=== PATIENT | female | born 1950 | race Two or more races ===

== ENCOUNTER 2019-09-06 13:47 | Inpatient (IN) | payer MEDICARE ==
[~2019-09-06] VITALS: Ht 162.6 cm; Wt 42.6 kg
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
[2019-09-06] MEDS ORDERED: BLOOD SUGAR DIAGNOSTIC 1 EACH STRIP IN ONE (23:00)
[2019-09-06] MEDS ORDERED: MAGNESIUM HYDROXIDE 30 ML UDC PO PRN (23:00)
[2019-09-06] MEDS ORDERED: ACETAMINOPHEN 325 MG TABLET PO PRN (23:00)
[2019-09-06] MEDS ORDERED: MAG HYDROX/AL HYDROX/SIMETH 30 ML UDC PO PRN (23:00)
[2019-09-07] MEDS ORDERED: ALPR2TAB7 PO (00:11)
[2019-09-07] MEDS ORDERED: HYDROXYZINE PO (00:11)
[2019-09-07] MEDS ORDERED: zolpidem (00:11)
[2019-09-07] MEDS ORDERED: BETH50TA2 PO (00:11)
[2019-09-07] MEDS ORDERED: buprenorphine PO (00:11)
[2019-09-07] MEDS ORDERED: TRAZ-257 PO (00:11)
[2019-09-07] MEDS ORDERED: BETHANECHOL CHLORIDE 50 MG TABLET PO SCH (00:30)
[2019-09-07 00:48] VITALS: BP 152/117
[2019-09-07] MEDS: LORAZEPAM 0.5 MG TABLET PO PRN ×2 (00:52→08:12)
--- NOTE | 2019-09-07 00:54 | NUR ---
GPS RN NOTES: ANXIOUS PT C/O OF FEELING ANXIOUS. OFFERED ATIVAN 0.5MG PO PRN ORDERED. PT AGREED AND TOLERATED MEDICATION WELL. CONTINUE TO MONITOR
[2019-09-07] MEDS ORDERED: BETHANECHOL CHLORIDE 50 MG TABLET PO PRN (01:00)
[2019-09-07] MEDS ORDERED: BETHANECHOL CHLORIDE (25 MG) 25 MG TABLET ONE (01:26)
--- NOTE | 2019-09-07 01:39 | NUR ---
GPS RN NOTES: PT C/O OF UNABLE TO URINATE. NO PAIN AT THIS TIME. PT STATED SHE HAS THE URGE TO USE THE RESTROOM BUT IS UNABLE TO URINATE. PT REQUESTED BETHANECHOL CHLORIDE. ADMINISTERED BETHANECHOL CHLORIDE 50MG 2 TABLETS. PT TOLERATED MEDICATION WELL. CONTINUE TO MONITOR.
--- NOTE | 2019-09-07 02:00 | NUR ---
GPS RN NOTES: PT STATED SHE WAS ABLE TO URINATE WELL. NO PAIN IR URGE AT THIS TIME. CONTINUE TO MONITOR.
[2019-09-07] MEDS: TEMAZEPAM 7.5 MG CAPSULE PO PRN (02:26)
--- NOTE | 2019-09-07 02:27 | NUR ---
GPS RN NOTES: INSOMNIA PT C/O UNABLE TO SLEEP. PT REQUESTED SLEEPING PILL. OFFERED RESTORIL 7.5 MG PO PRN ORDERED. PT AGREED AND TOLERATED MEDICATION WELL CONTINUE TO MONITOR.
[2019-09-07 07:14] LABS: CHOLESTEROL 284 mg/dL (<200); HDL CHOLESTEROL 102 mg/dL (40-60); LDL 172 mg/dL (0-99); TRIGLYCERIDES 82 mg/dL (30-150)
[2019-09-07 07:20] LABS: ALBUMIN 4.2 g/dL (3.4-5.0); BILIRUBIN,TOTAL 0.4 mg/dL (0.2-1.0); CALCIUM, SERUM 9.8 mg/dL (8.5-10.1); CREATININE 0.8 mg/dL (0.6-1.3); POTASSIUM 3.7 mmol/L (3.5-5.1); TOTAL PROTEIN, SERUM 7.7 g/dL (6.4-8.2)
[2019-09-07 08:00] VITALS: BP 112/50
--- NOTE | 2019-09-07 08:13 | NUR ---
RN NOTE- PT W AGITATION ELEVATED BP. MED RECON NOT DONE YET NOTIFIED. ATIVAN 0.5 MG GIVEN. MONITORING PT
--- NOTE | 2019-09-07 08:32 | NUR ---
RN NOTE- B/P 175/126 DR ORDONEZ NOTIFIED. ORDERS FORTHCOMING
[2019-09-07] MEDS: AMLODIPINE BESYLATE 5 MG TABLET PO SCH (08:49)
--- NOTE | 2019-09-07 09:00 | NUR ---
RN NOTE- PT ALERT CONFUSED DELUSIONAL PARANOID PERSECUTORY PO INTAKE FAIR, MED COMPLIANT ANXIOUS HIGH BP DENIES ALL
--- NOTE | 2019-09-07 09:40 | NUR ---
RN NOTE- DR ORDONEZ ORDERED NORVASC 5 MG FOR ELEVATED BP. GIVEN ONE HR AGO. RECHECK BP 208/132. DR RODRIGEZ NOTIFIED ORDERS RECEIVED
[2019-09-07] MEDS ORDERED: CLONIDINE HCL 0.1 MG TABLET PO ONE (10:00)
[2019-09-07] MEDS ORDERED: CLONIDINE HCL 0.1 MG TABLET PO PRN (10:00)
[2019-09-07] MEDS ORDERED: QUETIAPINE FUMARATE 25 MG TABLET PO PRN (11:00)
[2019-09-07] MEDS: ALPRAZOLAM 1 MG TABLET PO SCH ×3 (11:30→20:57)
[2019-09-07] MEDS: DIVALPROEX SODIUM 250 MG TABLET.DR PO SCH ×2 (12:45→16:43)
--- NOTE | 2019-09-07 15:08 | NUR ---
GROUP THERAPY: SW encouraged pt to attend group therapy in this present day, pt refused stating, "I don't want to leave my room." pt is not appropriate for individual counseling at this time as pt is manic and extremely anxious and unable to engage in redirection and conversation. Pts mood is also labile pt becomes hyperverbal then withdraws.
[2019-09-07 16:00] VITALS: BP 146/88
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
[2019-09-07 20:53] VITALS: BP 118/76
[2019-09-07] MEDS: QUETIAPINE FUMARATE 25 MG TABLET PO SCH (22:05)
--- NOTE | 2019-09-07 23:06 | NUR ---
GPS RN NOTES: UPON DOING ROUNDS PT LAYING IN BED AWAKE. PT STATED SHE DOES NOT WANT TO BE BOTHERED. PT EASILY AGITATED WHEN DOING ROUNDS. PT CLAIMS IT DISTURBS HER AND WANTS TO BE LEFT ALONE. OFFERED RESTORIL PRN ORDERED BUT PT DID NOT RESPOND. WILL OFFER AGAIN WITHIN THE NIGHT. REMINDED PT ABOUT Q15 MIN ROUNDS PER UNIT PROTOCOL. CONTINUE TO MONITOR.
[2019-09-08] MEDS: TEMAZEPAM 7.5 MG CAPSULE PO PRN (01:44)
[2019-09-08 08:00] VITALS: BP 142/82
[2019-09-08] MEDS: DIVALPROEX SODIUM 250 MG TABLET.DR PO SCH ×3 (08:19→17:09)
[2019-09-08] MEDS: AMLODIPINE BESYLATE 5 MG TABLET PO SCH (08:19)
[2019-09-08] MEDS: ALPRAZOLAM 1 MG TABLET PO SCH ×4 (08:19→21:06)
--- NOTE | 2019-09-08 09:00 | NUR ---
RN NOTE-PT IN ROOM QUIET ANXIOUS. DENIES SI HI AH VH TREMULOUS AT TIMES VS STABLE PO INTAKE FAIR. PHONED AGAIN REGARDING SUBOXYL. REQUESTED HIM TO BRING INTO FACILITY FOR PT USE, SECOND MESSAGE LEFT. WILL CONTACT MD TO SEE ABOUT ALTERNATE RX PLAN
--- NOTE | 2019-09-08 09:43 | NUR ---
WOUND CARE CONSULT: PT PRESENTS WITH DRY SCRATCH FLYNN, ESPECIALLY TO LEFT ARM, PRESENT ON ADMISSION. NO DRAINAGE OR TENDERNESS NOTED. CURRENT RHINA SCORE IS 19. WILL SEE PRN.
--- NOTE | 2019-09-08 11:30 | NUR ---
Family Contact: JAKOB called the following three phone numbers for the pts , West ([phone]; [phone]; [phone]), and was unable to make contact. JAKOB left a message stating that she would like to speak to the pts regarding the pt and her care.
--- NOTE | 2019-09-08 12:13 | NUR ---
Initial Discharge Plan: Pt currently resides in her home located at [address] [place] [address]; ([phone]) with her , Seth ([phone]). Pt states that she would like to return to her house if her is gone. SW will work with the pt and the MD regarding appropriate discharge planning. SW will form a safe and proper discharge.
[2019-09-08] MEDS ORDERED: BUPR1FIL SL (12:39)
[2019-09-08] MEDS ORDERED: KEY,NONCONTROL,TO KEEP IN PYXI 1 EA MC ONE ×3 (14:50→22:04)
[2019-09-08] MEDS: SUBOXONE SL PRN (14:53)
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
[2019-09-08 16:00] VITALS: BP 122/57
--- NOTE | 2019-09-08 16:02 | NUR ---
Individual Counseling: This SW met with pt. at bedside to facilitate individual counseling regarding support systems. The patient presented sitting on her bed and appears unkempt, irritable and anxious. SW attempted to engage with patient, however, patient was fixated on getting her medication stating, "I am in extreme pain". Patient refused to meet with SW. Patient will be invited to attend future therapeutic milieu.
--- NOTE | 2019-09-08 19:45 | NUR ---
GPS RN NOTES RECEIVED PATIENT FROM MORNING SHIFT, ALERT AND ORIENTED X 3 ANXIOUS, DISHEVELED WITH TREMORS. VERBALLY RESPONSIVE AND ABLE TO FOLLOW DIRECTIONS. BREATHING REGULAR AND UNLABORED ON ROOM. DENIES SUICIDAL IDEATION OR HALLUCINATION. NO COMPLAINTS OF PAIN/DISCOMFORT REPORTED AT THIS TIME. BED LOW AND LOCKED ON SEMI FOWLERS POSITION. WILL CLOSELY MONITOR FOR SAFETY AND BEHAVIOR.
[2019-09-08 20:00] VITALS: BP 123/76
[2019-09-08 20:09] VITALS: BP 123/76
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
[2019-09-08] MEDS: QUETIAPINE FUMARATE 25 MG TABLET PO SCH (22:06)
--- NOTE | 2019-09-08 23:00 | NUR ---
GPS RN NOTES COMPLAINED OF BODY ACHE PER PATIENT "I HAVE AN EXTREME PAIN ALL OVER MY BODY GIVE ME MY MEDICINE", SUBOXONE 8MG/2MG TAKEN FROM NARCOTIC BOX WITNESSED BY CHARGE NURSE GIVEN SUBLINGUALLY. NON-PHARMACOLOGICAL INTERVENTIONS PROVIDED. VITAL SIGNS WNL. WILL CONTINUE TO MONITOR.
[2019-09-09] MEDS: LORAZEPAM 0.5 MG TABLET PO PRN (01:30)
--- NOTE | 2019-09-09 01:30 | NUR ---
GPS RN NOTES PATIENT REQUESTED FOR SLEEPING AID, RN OFFERED RESTORIL BUT SHE REFUSED. PER PATIENT SHE DOESN'T TAKE RESTORIL AND WANTS TO TAKE HER HOME MEDICATIONS. WHEN ASKED WHAT THOSE MEDICATION ARE, SHE SAID XANAX AND SUBOXONE. EXPLAINED TO HER THAT SHE ALREADY TOOK THOSE MEDICATIONS EARLIER BUT WON'T BELIEVE THE NURSE. PATIENT ACCUSED THER NURSES WERE HOLDING HER MEDICATIONS. OFFERED ATIVAN AND AGREED FOR IT. ATIVAN 0.5MG GIVEN BY MOUTH. RESTORIL RETURNED TO [facility] WITH WITNESS. WILL CONTINUE TO MONITOR.
[2019-09-09] MEDS: TEMAZEPAM 7.5 MG CAPSULE PO PRN ×2 (02:18→23:42)
[2019-09-09 08:00] VITALS: BP 155/119
[2019-09-09] MEDS: AMLODIPINE BESYLATE 5 MG TABLET PO SCH (08:48)
[2019-09-09] MEDS: ALPRAZOLAM 1 MG TABLET PO SCH ×4 (08:48→21:43)
[2019-09-09] MEDS: DIVALPROEX SODIUM 250 MG TABLET.DR PO SCH ×3 (08:49→17:00)
[2019-09-09] MEDS ORDERED: KEY,NONCONTROL,TO KEEP IN PYXI 1 EA MC ONE ×2 (08:52→21:29)
[2019-09-09] MEDS: SUBOXONE SL PRN ×2 (09:05→22:00)
--- NOTE | 2019-09-09 09:06 | NUR ---
Family Contact/Probable Cause Hearing Notification: SW called the pts , West ([phone]), to return his call that was left on the SW's voicemail. Pts did not answer and so the SW left a voicemail stating that the pt is not being discharged at this time but she does have a probable cause hearing today. JAKOB stated that she would like to discuss the discharge plan.
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
[2019-09-09] MEDS ORDERED: OLANZAPINE 10 MG VIAL IM ONE (14:30)
[2019-09-09 19:25] VITALS: BP 156/93
[2019-09-09] MEDS ORDERED: QUETIAPINE FUMARATE 25 MG TABLET PO SCH (22:00)
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
--- NOTE | 2019-09-10 05:17 | NUR ---
GPS RN NOTES: PT REFUSED BLOOD DRAW FOR CBC AND BMP AT 0500.
[2019-09-10] MEDS ORDERED: KEY,NONCONTROL,TO KEEP IN PYXI 1 EA MC ONE ×2 (05:45→15:03)
[2019-09-10] MEDS: SUBOXONE SL PRN ×2 (06:00→15:10)
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
[2019-09-10 08:00] VITALS: BP 104/68
[2019-09-10] MEDS: DIVALPROEX SODIUM 250 MG TABLET.DR PO SCH ×2 (08:19→17:13)
[2019-09-10] MEDS: ALPRAZOLAM 1 MG TABLET PO SCH (08:19)
[2019-09-10] MEDS: AMLODIPINE BESYLATE 5 MG TABLET PO SCH (08:35)
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
--- NOTE | 2019-09-10 10:04 | NUR ---
GPS/RN-NOTES PATIENT IN THE NURSE STATION ASKING SLEEPING MEDICATIONS. EXPLAINED SLEEPING MEDICATION IS NOT GIVEN IN THE MORNING. PATIENT IS ANGRY,SCREAMING AND YELLING AT THE NURSE STATION,DELUSIONAL. PATIENT BANGING ROOM DOOR SEVERAL TIMES. REDIRECTED PATIENT OFFERED ATIVAN P.O BUT PATIENT REFUSED. STATED" I'M VERY INTELLIGENT,I HAVE SEVERAL DEGREES IN PSYCHOLOGY AND AND TO PSYCHIATRIST, I WILL GEOVANNY THIS HOSPITAL AND MAKE SURE YOU ALL GET FIRED". ALL 09[address] ADMIN[address]ED. [address] MICHELLE IN THE UNIT WITH IM ORDERS.
[2019-09-10] MEDS ORDERED: OLANZAPINE 10 MG VIAL IM STA (10:12)
[2019-09-10] MEDS ORDERED: LORAZEPAM INJ 2 MG/ML VIAL IM STA (10:13)
--- NOTE | 2019-09-10 10:56 | NUR ---
GPS/RN NOTES PATIENT VERY AGITATED CONTINUOUSLY BANGING HER ROOM DOOR ,UNABLE TO REDIRECT DR. MICHELLE IN THE UNIT WITH ORDER OF ATIVAN 1MG IM AND ZYPREXA 5MG IM FOR AGITATION. PULLED ATIVAN 2MG VIAL IN THE PYXES BUT THE PYXES DID NOT LET ME COUNT. DISCREPANCY WAS RESOLVED WITH [facility] ( [facility]). ATIVAN 1MG VIAL WAS WASTED, WITNESS BY CHARGE NURSE TONO.
[2019-09-10] MEDS ORDERED: QUETIAPINE FUMARATE 25 MG TABLET PO PRN (11:00)
--- NOTE | 2019-09-10 11:05 | NUR ---
RN-CO: WITNESSED, CIRO Vásquez WASTED 1 MG OF ATIVAN VIAL.
--- NOTE | 2019-09-10 11:30 | NUR ---
GPS/RN-NOTES PATIENT UP IN THE HUI-CHAIR CALM,TALKING TO JOSE ( ACTIVITY STAFF) ,NO ACUTE DISTRESS NOTED.
--- NOTE | 2019-09-10 14:37 | NUR ---
Group Note/Individual Session: SW encouraged the pt to participate in group therapy but the pt is labile and aggressive. Pt has been cursing at the SW, has been accusatory towards the SW and has been banging her hands on the windows of the nursing station. Pt has been refusing her medications and has been receiving multiple IMs daily. SW deemed this pt inappropriate for group at this time.
[2019-09-10 16:00] VITALS: BP 125/94
[2019-09-10] MEDS: QUETIAPINE FUMARATE 25 MG TABLET PO SCH (17:13)
[2019-09-10 17:50] LABS: BASOPHILS # (AUTO) 0.1 /CMM (0.0-0.2); BASOPHILS % (AUTO) 0.6 % (0.0-2.0); EOSINOPHILS % (AUTO) 2.1 % (0.0-6.0); HEMATOCRIT 38 % (33-45); HEMOGLOBIN 12.3 g/dL (11.5-14.8); LYMPHOCYTES # (AUTO) 2.4 /CMM (0.8-4.8); LYMPHOCYTES % (AUTO) 30.7 % (20.0-44.0); MEAN CORPUSCULAR HGB CONC 33 g/dl (31.0-36.0); MEAN CORPUSCULAR VOLUME 86 fL (82-100); MONOCYTES # (AUTO) 0.6 /CMM (0.1-1.30); MONOCYTES % (AUTO) 8.1 % (2.0-12.0); NEUTROPHILS # (AUTO) 4.6 /CMM (1.8-8.9); NEUTROPHILS % (AUTO) 58.5 % (43.0-81.0); PLATELET COUNT (AUTO) 286 /CMM (150-450); RED BLOOD CELL COUNT(AUTO) 4.36 MIL/uL (4.0-5.2); WHITE BLOOD COUNT (AUTO) 7.9 K/uL (4.3-11.0)
[2019-09-10 18:00] LABS: BILIRUBIN,TOTAL 0.3 mg/dL (0.2-1.0); CALCIUM, SERUM 9.9 mg/dL (8.5-10.1); CREATININE 0.8 mg/dL (0.6-1.3); MAGNESIUM 2.1 mg/dL (1.8-2.4); POTASSIUM 3.8 mmol/L (3.5-5.1); TOTAL PROTEIN, SERUM 7.5 g/dL (6.4-8.2)
[2019-09-10 20:43] VITALS: BP 126/74
[2019-09-10] MEDS ORDERED: QUETIAPINE FUMARATE 25 MG TABLET PO SCH (22:00)
--- NOTE | 2019-09-10 22:27 | NUR ---
GPS RN NOTES: PT REFUSED 2200 MEDICATION SEROQUEL 25MG 3 TABS/75MG. EDUCATION PROVIDED TO PT ABOUT THE IMPORTANCE OF MED COMPLIANCE BUT PT BELIEVES STAFF IS TRYING TO DRUG HER. WILL CONTINUE TO MONITOR.
[2019-09-11] MEDS: SUBOXONE SL PRN ×3 (00:09→20:27)
[2019-09-11] MEDS: TEMAZEPAM 7.5 MG CAPSULE PO PRN ×2 (00:15→22:45)
[2019-09-11] MEDS: LORAZEPAM 0.5 MG TABLET PO PRN (03:04)
--- NOTE | 2019-09-11 03:04 | NUR ---
GPS RN NOTE, PATIENT HAS A COMPLAINT OF FEELING ANXIOUS AND IS REQUESTING ATIVAN AT THIS TIME. PATIENT VITAL SIGNS ARE STABLE. GAVE ATIVAN 0.5MG PO Q6HR PRN ORDERED. WILL CONTINUE TO MONITOR THIS PATIENT WITH THE HELP OF STAFF.
--- NOTE | 2019-09-11 07:12 | NUR ---
GPS RN OPENING NOTE RECEIVED PT AWAKE IN BED AT THIS TIME. AO X2-3, PT ABLE TO MAKE NEEDS KNOWN. NO SOB NOTED, NO S/S OF ANY ACUTE DISTRESS NOTED, NO C/O PAIN AT THIS TIME, RESPIRATIONS EVEN AND UNLABORED. PT IS COOPERATIVE AND COMPLAINT. DENIES ANY SI/HI. SAFETY PRECAUTIONS IN PLACE, BED IN LOWEST LOCKED POSITION, BED ALARM ON, HOB ELEVATED TO SEMI FOWLERS POSITION, CALL LIGHT WITHIN REACH,WILL CONTINUE WITH PLAN OF CARE AND CONTINUE TO MONITOR
[2019-09-11 08:00] VITALS: BP 196/92
[2019-09-11] MEDS: DIVALPROEX SODIUM 250 MG TABLET.DR PO SCH ×2 (08:47→17:06)
[2019-09-11] MEDS: QUETIAPINE FUMARATE 25 MG TABLET PO SCH ×3 (08:47→17:06)
[2019-09-11] MEDS: AMLODIPINE BESYLATE 5 MG TABLET PO SCH (08:48)
[2019-09-11] MEDS ORDERED: KEY,NONCONTROL,TO KEEP IN PYXI 1 EA MC ONE ×3 (11:18→20:19)
--- NOTE | 2019-09-11 11:41 | NUR ---
PT REQUESTED SUBOXONE STATING " I AM IN PAIN". PAIN ASSESSMENT DONE. PATIENT RATED PAIN ON A SCALE OF 5/10, GENERALIZED, AND ACHING. VITAL SIGNS ASSESSED, BP 142/88, HR 82, RR 18, TEMP 98.6, SPO2 98%. SUBOXONE 8MG/2MG SL TID PRN WAS ADMINISTERED PER ORDER. WILL CONTINUE TO MONITOR
--- NOTE | 2019-09-11 14:10 | NUR ---
Dr. Riddle made aware of the EKG result and no new order.
[2019-09-11] MEDS: BETHANECHOL CHLORIDE (25 MG) 25 MG TABLET PO PRN (15:11)
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
--- NOTE | 2019-09-11 15:30 | NUR ---
PT REQUESTED TEMPERATURE CHECKED, STATING "I THINK MY ROOM MATE HAS COVID" . TEMPERATURE ASSESSED AND IS 98.7. WILL CONTINUE TO MONITOR
--- NOTE | 2019-09-11 15:51 | NUR ---
SNF Referral: JAKOB faxed a referral to [facility] with attn to Kathryn to the fax number: [phone].
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
[2019-09-11 16:00] VITALS: BP 141/89
--- NOTE | 2019-09-11 16:49 | NUR ---
PATIENT REQUESTED TEMPERATURE CHECKED. TEMPERATURE ASSESSED AND TEMP IS 98.0. DOCTOR RASTA REQUESTED DOCTOR SOARES BE MADE AWARE IF DOCTOR FANY WILL LIKE ORDER A COVID SWAB. DOCTOR SOARES MADE AWARE. PER DOCTOR SOARES, KEEP MONITORING PATIENT'S TEMPERATURE. NO NEW ORDERS AT THIS TIME, WILL CONTINUE TO MONITOR
[2019-09-11] MEDS: ALPRAZOLAM 1 MG TABLET PO SCH (17:06)
[2019-09-11] MEDS: ENSURE ENLIVE 237 ML LIQUID (VANILLA) PO SCH (17:10)
--- NOTE | 2019-09-11 18:53 | NUR ---
GPS RN CLOSING NOTE PATIENT AWAKE SITTING IN [address] WAY SPEAKING ON THE PHONE AT THIS TIME. PT REMAINED STABLE THROUGHOUT SHIFT, ALL NEEDS, CARE, TREATMENT AND MEDICATIONS ADMINISTERED ANTICIPATED PER ORDER. SAFETY PRECAUTIONS IN PLACE, BED IN LOWEST LOCKED POSITION, BED ALARM ON, HOB ELEVATED TO SEMI FOWLERS POSITION, CALL LIGHT WITHIN REACH. WILL ENDORSE TO BLIND ESCORT NURSE FOR VELMA
[2019-09-11 20:49] VITALS: BP 142/89
[2019-09-11] MEDS: QUETIAPINE FUMARATE 100 MG TABLET PO SCH (21:54)
--- NOTE | 2019-09-12 03:47 | NUR ---
GPS RN NOTE: PT KEPT WAKING UP INTERMITTENTLY ANXIOUS, RESTLESS, SHAKING, TREMORS, CRYING AND SAYING "I'M HAVING NIGHTMARE I CAN'T GO BACK TO SLEEP. AT 0340 PT WOKE UP AGAIN CRYING AND SHAKING, VITAL SIGNS TAKEN BP177/114, P112. CLONIDINE 0.1MG TAB GIVEN PO ORDERED FOR SBP GREATER THAN 160. CURRENTLY PT IS SITTING IN THE HALLWAY STILL CRYING. WILL CONTINUE TO MONITOR.
[2019-09-12] MEDS ORDERED: KEY,NONCONTROL,TO KEEP IN PYXI 1 EA MC ONE ×2 (04:43→17:40)
[2019-09-12] MEDS: SUBOXONE SL PRN ×2 (04:48→22:29)
--- NOTE | 2019-09-12 04:57 | NUR ---
GPS RN NOTES: REASSESSED PT VITAL SIGNS AT 0430, BP152/86, P70, O2 SAT 98%. WILL CONTINUE TO MONITOR AND ENDORSE TO AM NURSE.
--- NOTE | 2019-09-12 05:59 | NUR ---
GPS RN CLOSING NOTE: PATIENT AWAKE A/O X3. SITTING IN HALLWAY, NEEDY. ALL NEEDS, CARE, TREATMENT AND MEDICATIONS ADMINISTERED ANTICIPATED PER ORDER. SAFETY PRECAUTIONS IN PLACE, BED IN LOWEST LOCKED POSITION, BED ALARM ON, CALL LIGHT WITHIN REACH. WILL CONTINUE TO MONITOR AND ENDORSE TO AM NURSE.
[2019-09-12 08:00] VITALS: BP 144/66
[2019-09-12] MEDS: QUETIAPINE FUMARATE 25 MG TABLET PO SCH ×3 (08:41→16:15)
[2019-09-12] MEDS: DIVALPROEX SODIUM 250 MG TABLET.DR PO SCH ×2 (08:41→16:15)
[2019-09-12] MEDS: ALPRAZOLAM 1 MG TABLET PO SCH ×3 (08:42→16:15)
[2019-09-12] MEDS: AMLODIPINE BESYLATE 5 MG TABLET PO SCH (08:42)
[2019-09-12] MEDS: ENSURE ENLIVE 237 ML LIQUID (VANILLA) PO SCH ×3 (08:44→17:14)
[2019-09-12 16:00] VITALS: BP 146/93
[2019-09-12 17:14] LABS: APPEARANCE,URINE CLEAR (CLEAR); BILIRUBIN,URINE NEGATIVE (NEGATIVE); BLOOD, URINE NEGATIVE Ery/uL (NEGATIVE); COLOR,URINE YELLOW (YELLOW); KETONES,URINE NEGATIVE (NEGATIVE); LEUKOCYTE ESTERASE ,URINE NEGATIVE (NEGATIVE); NITRITE, URINE NEGATIVE (NEGATIVE); PH,URINE 6.5 (5.0-8.0); PROTEIN,URINE NEGATIVE (NEGATIVE); UGLUCOSE NEGATIVE (NEGATIVE); UROBILINOGEN,URINE 0.2 EU/dL (0.2)
[2019-09-12 20:00] VITALS: BP 92/52
[2019-09-12 20:08] VITALS: BP 96/52
[2019-09-12] MEDS: QUETIAPINE FUMARATE 100 MG TABLET PO SCH (21:15)
[2019-09-12] MEDS: TEMAZEPAM 7.5 MG CAPSULE PO PRN (21:15)
[2019-09-13] MEDS ORDERED: BETHANECHOL CHLORIDE (25 MG) 25 MG TABLET ONE (02:07)
[2019-09-13] MEDS: BETHANECHOL CHLORIDE (25 MG) 25 MG TABLET PO PRN (02:12)
--- NOTE | 2019-09-13 07:40 | NUR ---
RN NOTE- SUBOXYL GIVEN AND SIGNED FOR.WILL CONTACT TO OBTAIN REFILL SHES DOWN TO FIVE
[2019-09-13] MEDS ORDERED: KEY,NONCONTROL,TO KEEP IN PYXI 1 EA MC ONE ×2 (07:47→18:56)
[2019-09-13 08:00] VITALS: BP 153/88
--- NOTE | 2019-09-13 08:15 | NUR ---
RN NOTE- CALLED REGARDING REFILL SUBOXYL. UNABLE TO LEAVE MESSAGE . Trever HARRISON
[2019-09-13] MEDS: DIVALPROEX SODIUM 250 MG TABLET.DR PO SCH ×2 (08:27→17:04)
[2019-09-13] MEDS: QUETIAPINE FUMARATE 25 MG TABLET PO SCH ×3 (08:28→17:04)
[2019-09-13] MEDS: ALPRAZOLAM 1 MG TABLET PO SCH ×3 (08:28→17:04)
[2019-09-13] MEDS: AMLODIPINE BESYLATE 5 MG TABLET PO SCH (08:28)
[2019-09-13] MEDS: ENSURE ENLIVE 237 ML LIQUID (VANILLA) PO SCH ×3 (08:53→17:04)
--- NOTE | 2019-09-13 09:00 | NUR ---
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 PATIENT ABLE TO USE PHONE WITH SUPERVISION. COMPLIANT WITH P.O MEDICATION. ALL NEEDS ATTENDED AND ANTICIPATED. WILL CONT. RN CALLING TO REFILL SUBOXYL
--- NOTE | 2019-09-13 11:22 | NUR ---
RN NOTE- SPOKE WITH OLGA [phone] . REGARDING SUBOXYL REFILL. HE GAVE ME NUMBER OF MD PLUS PHARMACY NUMBER. HE SAID HE WOULD FIELD REPRESENTATIVES DIRECTOR AT PHARMACY AND BRING TO HOSPITAL FOR PT ONCE CALLED IN FROM DR JAKE JOHNSON [phone]. [address] JOHNSON OFFICE LEFT INFO MED MESSAGE AND MY INFORMATION CALL BACK. PHARMACY IS [facility] [phone]. AWAITING RETURN CALL FROM DR JOHNSON. WILL TRY AGAIN IN MORNING IF NO REPLY TODAY.
[2019-09-13 16:00] VITALS: BP 115/65
[2019-09-13 20:18] VITALS: BP 99/52
[2019-09-13] MEDS: QUETIAPINE FUMARATE 100 MG TABLET PO SCH ×2 (21:00→21:55)
--- NOTE | 2019-09-13 21:56 | NUR ---
GPS-RN NOTE: ZYPREXA 100MG PO DROPPED ON THE FLOOR WASTED WITNESSED BY ANOTHER RN. PULLED IN THE PYXIS ZYPREXA 100MG PO. ADMINISTERED ORDERED. PT. TOLERATED WELL.
[2019-09-13] MEDS: LORAZEPAM 0.5 MG TABLET PO PRN (22:16)
--- NOTE | 2019-09-13 22:16 | NUR ---
GPS-RN NOTE: PATIENT IS VERY ANXIOUS, AGITATED AND RESTLESS. ADMINISTERED ATIVAN 0.5MG PO ORDERED. WILL CONTINUE TO MONITOR FOR SAFETY.
[2019-09-13] MEDS: TEMAZEPAM 7.5 MG CAPSULE PO PRN (23:10)
--- NOTE | 2019-09-13 23:10 | NUR ---
GPS-RN NOTE: PATIENT C/O INABILITY TO SLEEP. ADMINISTERED RESTORIL 7.5MG PO ORDERED. WILL CONTINUE TO MONITOR.
[2019-09-14] MEDS ORDERED: KEY,NONCONTROL,TO KEEP IN PYXI 1 EA MC ONE ×4 (02:00→18:59)
[2019-09-14] MEDS: SUBOXONE SL PRN ×2 (02:07→14:07)
--- NOTE | 2019-09-14 02:07 | NUR ---
GPS-RN NOTE: C/O BACK PAIN PATIENT C/O BACK AND NECK PAIN ON A PAIN SCALE OF 7/10. ADMINISTERED SUBOXONE 8MG/2MG SL ORDERED. WILL CONTINUE TO MONITOR FOR EFFECTIVENESS.
[2019-09-14 08:00] VITALS: BP_SYST 121; BP_SYST 145; BP_DIAS 77; BP_DIAS 80
[2019-09-14] MEDS: QUETIAPINE FUMARATE 25 MG TABLET PO SCH ×4 (08:16→17:20)
[2019-09-14] MEDS: ALPRAZOLAM 1 MG TABLET PO SCH (08:17)
[2019-09-14] MEDS: AMLODIPINE BESYLATE 5 MG TABLET PO SCH (08:17)
[2019-09-14] MEDS: ENSURE ENLIVE 237 ML LIQUID (VANILLA) PO SCH ×3 (08:17→17:20)
[2019-09-14] MEDS: DIVALPROEX SODIUM 250 MG TABLET.DR PO SCH ×4 (08:17→17:21)
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
--- NOTE | 2019-09-14 11:40 | NUR ---
RN NOTE- SPOKE WITH DR JOHNSON OFFICE. PRESCRIPTION FAXED TO THEM AND THEY WILL CALL IT IN TO PHARMACY. NOTIFIED AND WILL MANAGER TALENT MANAGEMENT SUBOXYL AND BRING TO HOSPITAL TODAY
[2019-09-14] MEDS: risperiDONE 1 MG TABLET PO SCH ×3 (12:40→17:20)
[2019-09-14] MEDS ORDERED: ALPRAZOLAM 1 MG TABLET PO SCH (13:00)
--- NOTE | 2019-09-14 14:10 | NUR ---
Substance Abuse Intervention: JAKOB conducted a substance abuse intervention with the pt due to her dependence and abuse of her prescription medications.
--- NOTE | 2019-09-14 16:15 | NUR ---
Group Note: SW encouraged the pt to attend group therapy on 09/14/19 but the pt appeared to be too psychotic and stated that she wanted to remain in her room. SW provided an individual session at bedside to discuss the pts discharge. SW stated that the two options are a SNF or home with 24/7 care. Pt stated that she wants to go home and will hire a caregiver but she does not need the caregiver for 24/7. Pt stated that she is more than capable of taking care of herself and the SW stated that the MD does not think that is true based off of her behavior. Pt has a lack of understanding and appears to be intrusive and demanding.
[2019-09-14] MEDS: ALPRAZOLAM 0.5 MG TABLET PO SCH (17:20)
[2019-09-14] MEDS: LORAZEPAM 0.5 MG TABLET PO PRN (19:48)
--- NOTE | 2019-09-14 19:50 | NUR ---
GPS-RN NOTE: ANXIETY PATIENT IS ANXIOUS AND RESTLESS. ADMINISTERED ATIVAN 0.5MG PO ORDERED PER PT'S REQUEST. WILL CONTINUE TO MONITOR FOR SAFETY AND BEHAVIOR.
[2019-09-14 20:12] VITALS: BP 143/79
[2019-09-14] MEDS: QUETIAPINE FUMARATE 100 MG TABLET PO SCH (21:09)
[2019-09-14] MEDS: TEMAZEPAM 7.5 MG CAPSULE PO PRN (21:58)
--- NOTE | 2019-09-14 21:59 | NUR ---
GPS-RN NOTE: INSOMNIA PATIENT C/O INABILITY TO SLEEP. ADMINISTERED RESTORIL 7.5MG PO ORDERED. WILL CONTINUE TO MONITOR.
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
[2019-09-15] MEDS ORDERED: KEY,NONCONTROL,TO KEEP IN PYXI 1 EA MC ONE (01:37)
[2019-09-15] MEDS: SUBOXONE SL PRN (01:42)
[2019-09-15 08:00] VITALS: BP 154/90
[2019-09-15] MEDS: QUETIAPINE FUMARATE 25 MG TABLET PO SCH ×3 (09:12→17:58)
[2019-09-15] MEDS: AMLODIPINE BESYLATE 5 MG TABLET PO SCH (09:12)
[2019-09-15] MEDS: ENSURE ENLIVE 237 ML LIQUID (VANILLA) PO SCH ×3 (09:12→17:57)
[2019-09-15] MEDS: risperiDONE 1 MG TABLET PO SCH ×3 (09:12→17:58)
[2019-09-15] MEDS: DIVALPROEX SODIUM 250 MG TABLET.DR PO SCH ×3 (09:12→17:58)
[2019-09-15] MEDS: ALPRAZOLAM 0.5 MG TABLET PO SCH ×3 (09:12→17:58)
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
[2019-09-15] MEDS: BENZTROPINE MESYLATE (1 MG) 1 MG TABLET PO SCH ×2 (10:06→17:58)
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
[2019-09-15 16:00] VITALS: BP 149/99
[2019-09-15] MEDS ORDERED: QUETIAPINE FUMARATE 100 MG TABLET PO SCH (22:00)
[2019-09-15] MEDS: TEMAZEPAM 7.5 MG CAPSULE PO PRN (23:27)
[2019-09-16] MEDS ORDERED: KEY,NONCONTROL,TO KEEP IN PYXI 1 EA MC ONE (01:31)
[2019-09-16] MEDS: SUBOXONE SL PRN (01:35)
--- NOTE | 2019-09-16 01:35 | NUR ---
GPS RN NOTES PATIENT COMPLAINED OF PAIN. STATED, "MY NECK HURTS" RATED PAIN AN 8/10. ADMINISTERED SUBOXONE 8MG/2MG PER PATIENT'S REQUEST. WILL CONTINUE TO MONITOR.
[2019-09-16] MEDS: LORAZEPAM 0.5 MG TABLET PO PRN ×3 (03:52→22:00)
--- NOTE | 2019-09-16 03:52 | NUR ---
GPS RN NOTES PATIENT GOT UP FROM SLEEP TO USE BATHROOM AND GOT SCARED FROM BED ALARM. STARTED CRYING AND SHAKING. PT RAISED HER VOICE SO WAS BROUGHT TO THE ACTIVITY ROOM. ADMINISTERED ATIVAN 0.5 MG. WILL CONTINUE TO MONITOR.
[2019-09-16 08:00] VITALS: BP 155/98
[2019-09-16] MEDS: ALPRAZOLAM 0.5 MG TABLET PO SCH ×3 (08:17→16:27)
[2019-09-16] MEDS: DIVALPROEX SODIUM 250 MG TABLET.DR PO SCH ×3 (08:17→16:27)
[2019-09-16] MEDS: AMLODIPINE BESYLATE 5 MG TABLET PO SCH (08:18)
[2019-09-16] MEDS: BENZTROPINE MESYLATE (1 MG) 1 MG TABLET PO SCH ×2 (08:18→16:27)
[2019-09-16] MEDS: QUETIAPINE FUMARATE 25 MG TABLET PO SCH (08:18)
[2019-09-16] MEDS: risperiDONE 1 MG TABLET PO SCH ×3 (08:18→16:27)
[2019-09-16] MEDS: ENSURE ENLIVE 237 ML LIQUID (VANILLA) PO SCH ×3 (08:19→17:10)
[2019-09-16 08:43] LABS: BASOPHILS % (AUTO) 0.2 % (0.0-2.0); EOSINOPHILS % (AUTO) 0.4 % (0.0-6.0); HEMATOCRIT 35 % (33-45); HEMOGLOBIN 11.4 g/dL (11.5-14.8); MEAN CORPUSCULAR HGB CONC 32 g/dl (31.0-36.0); MEAN CORPUSCULAR VOLUME 86 fL (82-100); MONOCYTES # (AUTO) 0.4 /CMM (0.1-1.30); MONOCYTES % (AUTO) 5.5 % (2.0-12.0); NEUTROPHILS # (AUTO) 6.5 /CMM (1.8-8.9); NEUTROPHILS % (AUTO) 81.9 % (43.0-81.0); PLATELET COUNT (AUTO) 235 /CMM (150-450); WHITE BLOOD COUNT (AUTO) 7.9 K/uL (4.3-11.0)
[2019-09-16 09:00] VITALS: BP 133/84
[2019-09-16 09:02] LABS: ALBUMIN 3.9 g/dL (3.4-5.0); BILIRUBIN,TOTAL 0.3 mg/dL (0.2-1.0); CALCIUM, SERUM 9.5 mg/dL (8.5-10.1); CREATININE 0.7 mg/dL (0.6-1.3); MAGNESIUM 2.1 mg/dL (1.8-2.4); POTASSIUM 3.7 mmol/L (3.5-5.1); TOTAL PROTEIN, SERUM 7.5 g/dL (6.4-8.2)
--- NOTE | 2019-09-16 10:16 | NUR ---
RN-CO: Patient is allowed to use the phone yesterday and today because she is more redirectable. Discontinued denial of right to use the phone. Addendum: 09/16/19 at 1019 by LORENZA JOYNER RN RN-CO: Per staff who worked yesterday, they stated that she has been using the phone 09/15/19 and did not call 911 not harassed her .
--- NOTE | 2019-09-16 11:59 | NUR ---
FAMILY CONTACT: SW received a call from pts , [facility] ([phone]), SW informed him that pt has a discharge order for tomorrow 09/17/19. states that he will pick pt up at 4:00pm.
--- NOTE | 2019-09-16 14:34 | NUR ---
GPS/RN-NOTES PATIENT REQUESTING ATIVAN STATED" I'M ANXIOUS". ATIVAN 0.5MG P.O GIVEN PRN ORDER. WILL CONT. MONITORING FOR SAFETY AND BEHAVIOR.
--- NOTE | 2019-09-16 14:58 | NUR ---
GROUP NOTE: SW encouraged the pt to participate in group therapy but pt is too anxious and focused on her . SW informed her that pt will be discharged tomorrow and her will be picking her up. Pt agreed and stated she wanted to call her to talk to him.
--- NOTE | 2019-09-16 15:30 | NUR ---
GPS/RN-NOTES RECEIVED FROM DR. VIVIANA Lockett ORDER TO DISCONTINUE SEROQUEL 150MG P.O Q HS. NOTED AND CARRIED OUT
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
[2019-09-16 16:00] VITALS: BP 133/92
--- NOTE | 2019-09-16 16:04 | NUR ---
GPS/RN-NOTES PATIENT IN THE ROOM READING MAGAZINE,CALM NO ACUTE DISTRESS NOTED.
[2019-09-16 19:42] VITALS: BP 151/94
[2019-09-16] MEDS: TEMAZEPAM 7.5 MG CAPSULE PO PRN (22:35)
--- NOTE | 2019-09-16 22:56 | NUR ---
GPS RN NOTE: AT 2250 PT COMPLAINED OF HEADACHE, RATING PAIN LEVEL 6/10. TYLENOL 325MG 2TABS GIVEN PO. WILL CONTINUE TO MONITOR
[2019-09-17 08:00] VITALS: BP 154/94
[2019-09-17] MEDS: risperiDONE 1 MG TABLET PO SCH (08:22)
[2019-09-17] MEDS: DIVALPROEX SODIUM 250 MG TABLET.DR PO SCH (08:22)
[2019-09-17] MEDS: BENZTROPINE MESYLATE (1 MG) 1 MG TABLET PO SCH (08:22)
[2019-09-17] MEDS: ALPRAZOLAM 0.5 MG TABLET PO SCH (08:22)
[2019-09-17 08:26] VITALS: BP 154/94
[2019-09-17] MEDS: AMLODIPINE BESYLATE 5 MG TABLET PO SCH (08:26)
[2019-09-17] MEDS: ENSURE ENLIVE 237 ML LIQUID (VANILLA) PO SCH (08:27)
--- NOTE | 2019-09-17 09:15 | NUR ---
DISCHARGE NOTE: Pt will be discharged at 9:30am via private vehicle home to [address] [place] [id number]. Pts , [facility] ([phone]) will pick pt up and transport home. Pts mood is euthymic with congruent affect. Pt denied visual/auditory hallucinations and denied suicidal/homicidal ideation. Pt was given referrals to [facility] Address: [address], [place] [address] [address] [facility] Address: [address], [place] [address] to address her substance use. Pt will follow up with Psychiatrist: Dr. Selin Abel Address: [address], [place] [address] on Saturday09/21/19 at 11:00am and clinicals were faxed to F: [phone]. Pt will also follow up with [facility]: Dr. Stevan George Address: [address], [place] [address] . The multidisciplinary exit care form was done, printed, signed, and given to the patient.
--- NOTE | 2019-09-17 10:15 | NUR ---
GPS/RN-NOTES PATIENT HAD A DISCHARGE ORDER BY Dr. MICHELLE PAYROLL HUMAN RESOURCES ASSISTANT NI SOLIMANJarod MADE AWARE WITH ORDERS. PATIENT DISCHARGE TO HOME TODAY.PATIENT DID NOT VERBALIZE SI/HI,DENIES VISUAL AUDITORY HALLUCINATIONS AT THE TIME OF DISCHARGE.ALL DISCHARGE MEDICATIONS WAS REVIEWED WITH THE PATIENT` WITH UNDERSTANDING. RX GIVEN TO HER INCLUDING OWN MEDICATIONS. PATENT LEFT THE UNIT IN STABLE CONDITION A/O X4 AMBULATORY STEADY GAIT. INSTRUCTED PATIENT TO FOLLOW UP WITH PCP AND PSYCHIATRIST IN A WEEK OR NEEDED. PATIENT WAS WHEELED DOWN THE LOBBY BY THE SHELL MOLDER AND ONE [employer] PERSON STAFF FOR SAFETY. PATIENT STRONGLY REFUSED FULL BODY ASSESSMENT PRIOR TO DISCHARGE. STATED" MY SKIN IS FINE,JUST LET ME GO HOME MY IS WAITING".ATTEMPTED X2 STILL REFUSED. BRAKE DRUM LATHE OPERATOR BY OLGA VIA PRIVATE CAR. ALL RX WAS GIVEN AND REVIEWED WITH FAROOQ ESPINOZA. OWN MEDICATIONS INCLUDING SUBOXONE 1 BOX (30 FILM) AND OTHER BELONGINGS WAS ENDORSE TO HIM. DR. MICHELLE SPOKE TO PT. OLGA BY PHONE PRIOR TO LEAVING THE LOBBY.MASK WAS GIVEN TO THE PATIENT.
== END 2019-09-17 10:10 | disposition home or self-care (01) | DRG 885 ==
LOC: GPS 22:35
PROVIDERS: ADMIT Psychiatry & Neurology Psychosomatic Medicine; ATTEND Nurse Practitioner Acute Care
DX: F33.3 Major depressive disorder, recurrent, severe with psychotic symptoms (principal); G93.40 Encephalopathy, unspecified; E44.0 Moderate protein-calorie malnutrition; Z68.1 Body mass index [BMI] 19.9 or less, adult; F41.9 Anxiety disorder, unspecified; Z91.81 History of falling; G47.00 Insomnia, unspecified; Z73.6 Limitation of activities due to disability; F11.90 Opioid use, unspecified, uncomplicated; F13.90 Sedative, hypnotic, or anxiolytic use, unspecified, uncomplicated; I10 Essential (primary) hypertension; R33.9 Retention of urine, unspecified; F29 Unspecified psychosis not due to a substance or known physiological condition; Z98.1 Arthrodesis status; F43.10 Post-traumatic stress disorder, unspecified; Z91.411 Personal history of adult psychological abuse; Z91.410 Personal history of adult physical and sexual abuse
CPT/HCPCS: 36415; 80053-TC; 80061-TC; 80164-TC; 81000-TC; 82962-TC; 83735-TC; 85025-TC; 87081-TC; 87086-TC; J2060; J3490